=== PATIENT | female | born 1930 | race Two or more races ===

== ENCOUNTER 2019-09-13 09:00 | Inpatient (IN) | payer OTHER ==
[~2019-09-13] VITALS: Ht 154.9 cm; Wt 58.1 kg
[2019-09-14] MEDS ORDERED: TOPROL XL100 M1 PO (11:02)
[2019-09-14] MEDS ORDERED: HYDRALAZINE HCL25 MG PO (11:02)
[2019-09-14] MEDS ORDERED: NEURONTIN300 MG PO (11:03)
[2019-09-14] MEDS ORDERED: COZAAR25 MG PO (11:03)
== END 2019-09-20 18:16 | disposition home or self-care (01) | DRG 349 ==
LOC: ADM 09:00 → SURG 09-19 07:11 → O/R 09-19 07:11 → EDSTATUS 09-19 08:45 → CIR.AMB 09-19 08:45 → SURH 09-19 08:45 → RECOVERY 09-19 08:45 → SURH 09-19 10:00 → SURG 09-19 13:16
PROVIDERS: ADMIT Colon & Rectal Surgery; ATTEND Colon & Rectal Surgery
PROC: 0DBP7ZZ Excision of Rectum, Via Natural or Artificial Opening (ICD-10-PCS; principal; 2019-09-19 10:00)
DX: K62.3 Rectal prolapse (principal); I10 Essential (primary) hypertension; R15.9 Full incontinence of feces; K63.89 Other specified diseases of intestine